=== PATIENT | female | born 1950 | race Hispanic/Latino ===

== ENCOUNTER 2019-04-01 08:07 | Emergency (ER) | payer MEDICARE, BC | END 2019-04-01 09:17 | disposition home or self-care (01) | LOC: ERS 08:07 | DX: J06.9 Acute upper respiratory infection, unspecified (principal) | CPT/HCPCS: 87081; 87430; 99283 ==

== ENCOUNTER 2022-06-04 08:05 | Emergency (ER) | payer MEDICARE, BC | END 2022-06-04 08:47 | disposition home or self-care (01) | LOC: ERS 08:05 | DX: J02.9 Acute pharyngitis, unspecified (principal); J32.9 Chronic sinusitis, unspecified; I10 Essential (primary) hypertension | CPT/HCPCS: 99283 ==

== ENCOUNTER 2022-10-27 04:11 | Emergency (ER) | payer MEDICARE, BC ==
[2022-10-27] MEDS ORDERED: Dexameth. Sod Phosp. 10 MG/ML (CHEMO USE ONLY) ONE (05:08)
== END 2022-10-27 05:29 | disposition home or self-care (01) ==
LOC: ERS 04:11
DX: J30.9 Allergic rhinitis, unspecified (principal); J04.0 Acute laryngitis; I10 Essential (primary) hypertension; E78.00 Pure hypercholesterolemia, unspecified
CPT/HCPCS: 96372; 99283; J1100

== ENCOUNTER 2022-12-20 22:04 | Observation (INO) | payer MEDICARE, BC ==
[2022-12-21] MEDS ORDERED: cloNIDine 0.1 MG TAB ONE (00:51)
[2022-12-21 01:29] LABS: #Basophils 0.1 thou/uL (0.0-0.2); #Eosinphils 0.2 thou/uL (0.0-0.7); #Monocytes 0.5 thou/uL (0.11-0.59); #Neutrophils 3.1 thou/uL (1.40-6.50); %Basophils 1.1 % (0.0-1.0); %Eosinophils 4.3 % (0.0-10.0); %Lymphocytes 25.7 % (21.0-51.0); %Neutrophils 57.8 % (42.0-75.0); Hemoglobin 13.1 g/dL (12.0-16.0); Mean Corpuscular HGB CONC 33.6 g/dL (32.0-36.0); Mean Corpuscular Hemoglobin 29.8 pg (27.0-31.0); Mean Corpuscular Volume 88.8 fl (78.0-98.0); Mean Platelet Volume 9.6 fL (7.4-10.4); Platelet Count 161 10x3/uL (130-400); Red Blood Cell (RBC) Count 4.39 mill/uL (4.20-5.40); White Blood Cell (WBC) Count 5.4 10x3/uL (4.8-10.8)
[2022-12-21 01:51] LABS: Bacteria/HPF None Seen HPF (None Seen); Bilirubin Negative (Negative); Blood, Urine Negative (Negative); CAUTI Indications for Culture Dysuria,urgency,freq; Clarity Clear (Clear); Glucose, Urine (Dipstick) Normal (Negative); Ketone, Urine Negative (Negative); Leukocyte Negative Leu/uL (Negative); Nitrite Negative (Negative); Protein, Urine (Dipstick) Negative (Neg-Trace); RBC/HPF None Seen HPF (0-3); Specific Gravity, Urine 1.004 (1.002-1.036); Squamous Epithelial 0-3 HPF (0-3); Urobilinogen Normal mg/dL (Less than 2); WBC/HPF 0-3 HPF (0-3); pH, Urine 6.5 (5.0-9.0)
[2022-12-21 01:54] LABS: ALT (SGPT) 31 U/L (8-55); AST (SGOT) 19 U/L (5-34); Albumin 4.4 g/dL (3.4-4.8); Alkaline Phosphatase 76 U/L (40-110); Anion Gap 19 mmol/L (10-20); BUN (Urea Nitrogen) 23 mg/dL (9.8-20.1); Bilirubin, Total 0.4 mg/dL (0.2-1.2); Calc. Creatinine Clearance 0 mL/min (70-130); Calcium 9.3 mg/dL (7.8-10.44); Carbon Dioxide 19 mmol/L (23-31); Chloride 110 mmol/L (98-107); Estimated GFR 77; Glucose 109 mg/dL (80-115); Magnesium 2.1 mg/dL (1.6-2.6); Potassium 3.6 mmol/L (3.5-5.1); Protein, Total 6.4 g/dL (5.8-8.1); Sodium 144 mmol/L (136-145)
[2022-12-21 01:57] LABS: Troponin I Less than 0.010 ng/mL (< 0.028)
[2022-12-21 02:00] LABS: Urine Culture Reflex No No
[2022-12-21 05:06] LABS: Troponin I Less than 0.010 ng/mL (< 0.028)
[2022-12-21 05:48] VITALS: BMI 33.7
[2022-12-21] MEDS ORDERED: Ondansetron ODT 4 MG TAB SL PRN (06:15)
[2022-12-21] MEDS ORDERED: Ondansetron PF 4 MG/2 ML Vial IVP PRN (06:15)
[2022-12-21 07:43] LABS: Troponin I Less than 0.010 ng/mL (< 0.028)
[2022-12-21 08:04] VITALS: BP 99/55; TEMP 97.6
== END 2022-12-21 11:50 | disposition home or self-care (01) ==
LOC: ERS 22:04 → 2SW 12-21 04:16
PROVIDERS: ADMIT Student in an Organized Health Care Education/Training Program; ATTEND Student in an Organized Health Care Education/Training Program
DX: I16.0 Hypertensive urgency (principal); Z79.899 Other long term (current) drug therapy; E78.5 Hyperlipidemia, unspecified; Z90.710 Acquired absence of both cervix and uterus
CPT/HCPCS: 71045; 81001; 83735; 83880; 84484 ×2; 93005; 99284; G0378 ×2; 36415; 80053; 84443; 85025

== ENCOUNTER 2023-03-12 21:56 | Emergency (ER) | payer BC, MEDICARE | END 2023-03-12 23:26 | disposition home or self-care (01) | LOC: ERS 21:56 | DX: R07.0 Pain in throat (principal); I10 Essential (primary) hypertension; E78.00 Pure hypercholesterolemia, unspecified | CPT/HCPCS: 70360 ==

== ENCOUNTER 2024-09-13 16:45 | Emergency (ER) | payer MEDICARE ==
[~2024-09-13 16:45] MED LIST: Iopamidol-370 76% 500 ML MDV (1 ML CHARGE) ONE
[2024-09-13 17:37] LABS: #Basophils 0.03 10x3/uL (0.0-0.2); #Eosinophils 0.09 10x3/uL (0.0-0.7); #Monocytes 0.55 10x3/uL (0.11-0.59); #Neutrophils 5.18 10x3/uL (1.40-6.50); %Basophils 0.4 % (0.0-1.0); %Eosinophils 1.3 % (0.0-10.0); %Lymphocytes 15.4 % (21.0-51.0); %Monocytes 7.9 % (0.0-10.0); %Neutrophils 74.4 % (42.0-75.0); Hematocrit 40.1 % (36.0-47.0); Hemoglobin 13.4 g/dL (12.0-16.0); Mean Corpuscular Hemoglobin 28.5 pg (27.0-31.0); Mean Corpuscular Volume 85.3 fL (78.0-98.0); Platelet Count 200 10x3/uL (130-400); Red Blood Cell (RBC) Count 4.70 mill/uL (4.20-5.40); White Blood Cell (WBC) Count 6.96 10x3/uL (4.8-10.8)
[2024-09-13 18:01] LABS: ALT (SGPT) 25 U/L (Less than 34); AST (SGOT) 20 U/L (11-34); Albumin 4.0 g/dL (3.1-4.5); Alkaline Phosphatase 70 U/L (40-110); Anion Gap 12 mmol/L (10-20); BUN (Urea Nitrogen) 14 mg/dL (9.8-20.1); Bilirubin, Total 0.4 mg/dL (0.3-1.2); Calc. Creatinine Clearance 0 mL/min (70-130); Calcium 9.3 mg/dL (7.8-10.44); Carbon Dioxide 23 mmol/L (23-31); Chloride 109 mmol/L (98-107); Globulin 2.3 g/dL (2.4-3.5); Glucose 107 mg/dL (83-110); Lipase 34 U/L (8-78); Potassium 3.4 mmol/L (3.5-5.1); Sodium 141 mmol/L (136-145)
[2024-09-13 18:02] LABS: Troponin I Less than 0.010 ng/mL (< 0.028)
[2024-09-13] MEDS ORDERED: Mag-Al 1200 mg/1200 mg/30 ML UDCUP ONE (18:26)
[2024-09-13] MEDS ORDERED: Lidocaine Viscous Sol 2% 15 ml UD Cup ONE (18:26)
[2024-09-13 18:41] LABS: Bacteria/HPF None Seen HPF (None Seen); CAUTI Indications for Culture Dysuria,urgency,freq; Glucose, Urine (Dipstick) Normal (Negative); Leukocyte Negative Leu/uL (Negative); Protein, Urine (Dipstick) Negative (Neg-Trace); RBC/HPF 0-3 HPF (0-3); Specific Gravity, Urine 1.022 (1.002-1.036); WBC/HPF 0-3 HPF (0-3)
[2024-09-13 18:44] LABS: Urine Culture Reflex No No
[2024-09-13] MEDS ORDERED: Ondansetron PF 4 MG/2 ML Vial ONE (18:50)
== END 2024-09-13 21:46 | disposition home or self-care (01) ==
LOC: ERS 16:45
DX: K29.80 Duodenitis without bleeding (principal); K52.9 Noninfective gastroenteritis and colitis, unspecified; I10 Essential (primary) hypertension
CPT/HCPCS: 71045; 71260; 74177; 76705; 80053; 81001; 83690; 84484; 85025; 93005; J2405; 36415; 96374

== ENCOUNTER 2024-09-21 20:53 | Emergency (ER) | payer MEDICARE ==
[2024-09-21 23:03] LABS: #Basophils 0.03 10x3/uL (0.0-0.2); #Eosinophils 0.14 10x3/uL (0.0-0.7); #Monocytes 0.44 10x3/uL (0.11-0.59); #Neutrophils 2.21 10x3/uL (1.40-6.50); %Basophils 0.7 % (0.0-1.0); %Eosinophils 3.5 % (0.0-10.0); %Lymphocytes 29.4 % (21.0-51.0); %Monocytes 10.9 % (0.0-10.0); %Neutrophils 54.5 % (42.0-75.0); Hematocrit 37.6 % (36.0-47.0); Hemoglobin 12.6 g/dL (12.0-16.0); Mean Corpuscular Hemoglobin 28.4 pg (27.0-31.0); Mean Corpuscular Volume 84.7 fL (78.0-98.0); Platelet Count 194 10x3/uL (130-400); Red Blood Cell (RBC) Count 4.44 mill/uL (4.20-5.40); White Blood Cell (WBC) Count 4.05 10x3/uL (4.8-10.8)
[2024-09-21 23:21] LABS: ALT (SGPT) 24 U/L (Less than 34); AST (SGOT) 26 U/L (11-34); Albumin 4.3 g/dL (3.1-4.5); Alkaline Phosphatase 72 U/L (40-110); Anion Gap 15 mmol/L (10-20); BUN (Urea Nitrogen) 12 mg/dL (9.8-20.1); Bilirubin, Total 0.3 mg/dL (0.3-1.2); Calc. Creatinine Clearance 0 mL/min (70-130); Calcium 9.3 mg/dL (7.8-10.44); Carbon Dioxide 22 mmol/L (23-31); Chloride 110 mmol/L (98-107); Globulin 2.4 g/dL (2.4-3.5); Glucose 99 mg/dL (83-110); Lipase 47 U/L (8-78); Magnesium 2.1 mg/dL (1.6-2.6); Potassium 3.6 mmol/L (3.5-5.1); Sodium 143 mmol/L (136-145)
[2024-09-21 23:25] LABS: Troponin I 0.013 ng/mL (< 0.028)
== END 2024-09-22 00:49 | disposition home or self-care (01) ==
LOC: ERS 20:53
DX: I10 Essential (primary) hypertension (principal); Z79.899 Other long term (current) drug therapy
CPT/HCPCS: 36415; 71045; 80053; 83690; 83735; 84484; 85025; 93005